=== PATIENT | female | born 1995 | race African-American/Black ===

== ENCOUNTER 2021-05-12 08:57 | Emergency (ER) | payer OTHER ==
[~2021-05-12] VITALS: Ht 160 cm; Wt 49.9 kg
[2021-05-12 09:07] VITALS: BP 114/64
--- NOTE | 2021-05-12 09:11 | NUR ---
TO ER BED 4, C/O THROAT DISCOMFORT X 1 YEAR,WORSE X 1 WEEK LEFT SIDED RIBCAGE PAIN X 1 WEEK, AAOX4, BREATHING EVEN AND NON LABORED
--- NOTE | 2021-05-12 09:43 | NUR ---
LAB AT BEDSIDE
--- NOTE | 2021-05-12 09:44 | NUR ---
JUDICIAL REPORTER AT BEDSIDE
[2021-05-12 09:58] LABS: BASOPHILS % (AUTO) 0.9 % (0.0-2.0); EOSINOPHILS % (AUTO) 6.4 % (0.0-6.0); HEMATOCRIT 35 % (33-45); HEMOGLOBIN 11.5 g/dL (11.5-14.8); LYMPHOCYTES # (AUTO) 1.8 K/uL (0.8-4.8); LYMPHOCYTES % (AUTO) 35.9 % (20.0-44.0); MEAN CORPUSCULAR HGB CONC 33 g/dl (31.0-36.0); MEAN CORPUSCULAR VOLUME 88 fL (82-100); MONOCYTES # (AUTO) 0.3 K/uL (0.1-1.30); NEUTROPHILS # (AUTO) 2.4 K/uL (1.8-8.9); NEUTROPHILS % (AUTO) 49.8 % (43.0-81.0); PLATELET COUNT (AUTO) 239 K/uL (150-450); RED BLOOD CELL COUNT(AUTO) 3.99 MIL/uL (4.0-5.2); WHITE BLOOD COUNT (AUTO) 4.9 K/uL (4.3-11.0)
[2021-05-12 11:21] LABS: CREATININE 0.8 mg/dL (0.6-1.3); POTASSIUM 4.6 mmol/L (3.5-5.1)
== END 2021-05-12 12:07 | disposition home or self-care (01) ==
LOC: ER 09:05
DX: R13.10 Dysphagia, unspecified (principal); R07.0 Pain in throat
CPT/HCPCS: 36415; 70360-TC; 80048-TC; 84703-TC; 85025-TC

== ENCOUNTER 2023-01-29 21:26 | Emergency (ER) | payer OTHER ==
[~2023-01-29] VITALS: Ht 160 cm; Wt 49.0 kg
--- NOTE | 2023-01-29 22:56 | NUR ---
BIBFRIEND WITH CC OF ON AND OFF CHEST PAIN X2DAYS. - MEDS TAKEN, PAIN SCALE 3/10 AT THE MOMENT
--- NOTE | 2023-01-29 23:35 | NUR ---
20G STARTED ON L AC. BLOOD COLLECTED SENT TO LAB
--- NOTE | 2023-01-29 23:41 | NUR ---
DR. LOPEZ AT BEDSIDE
--- NOTE | 2023-01-29 23:58 | NUR ---
X-RAY AT BEDSIDE
[2023-01-29 23:59] LABS: BASOPHILS % (AUTO) 1.1 % (0.0-2.0); EOSINOPHILS % (AUTO) 5.6 % (0.0-6.0); HEMATOCRIT 37 % (33-45); HEMOGLOBIN 11.9 g/dL (11.5-14.8); LYMPHOCYTES # (AUTO) 1.4 K/uL (0.8-4.8); LYMPHOCYTES % (AUTO) 41.9 % (20.0-44.0); MEAN CORPUSCULAR HGB CONC 33 g/dl (31.0-36.0); MEAN CORPUSCULAR VOLUME 85 fL (82-100); MONOCYTES # (AUTO) 0.3 K/uL (0.1-1.30); MONOCYTES % (AUTO) 8.4 % (2.0-12.0); NEUTROPHILS # (AUTO) 1.5 K/uL (1.8-8.9); PLATELET COUNT (AUTO) 236 K/uL (150-450); RED BLOOD CELL COUNT(AUTO) 4.32 MIL/uL (4.0-5.2); WHITE BLOOD COUNT (AUTO) 3.5 K/uL (4.3-11.0)
[2023-01-30 00:05] LABS: CALCIUM, SERUM 9.1 mg/dL (8.5-10.1); CARBON DIOXIDE 27 mmol/L (21-32); CHLORIDE 106 mmol/L (98-107); CREATININE 0.7 mg/dL (0.6-1.3); GLUCOSE 84 mg/dL (74-106); POTASSIUM 3.3 mmol/L (3.5-5.1); SODIUM SERUM 139 mmol/L (136-145); UREA NITROGEN, BLOOD 13 mg/dL (7-18)
--- NOTE | 2023-01-30 03:25 | NUR ---
Patient discharged to home in stable condition. Written and verbal after care instructions given. Patient verbalizes understanding of instruction.
--- NOTE | 2023-01-30 03:25 | NUR ---
IV ROSEY REMOVED
[2023-01-30 03:35] VITALS: BP 103/64
== END 2023-01-30 03:36 | disposition home or self-care (01) ==
LOC: ER 21:29
DX: R07.89 Other chest pain (principal); R00.2 Palpitations
CPT/HCPCS: 36415; 71045-TC; 80048-TC; 84484-TC; 84703-TC; 85025-TC